=== PATIENT | female | born 1955 | race Caucasian/White ===

== ENCOUNTER 2022-08-24 10:32 | Emergency (ER) | payer OTHER ==
[2022-08-24 10:46] VITALS: BP 112/77; PULSE 86; RESP 16; TEMP 97.8; BMI 22.4
== END 2022-08-24 13:50 | disposition home or self-care (01) ==
LOC: FER 10:32
PROC: 2W3RX1Z Immobilization of Left Lower Leg using Splint (ICD-10-PCS; principal; 2022-08-24)
DX: S99.912A Unspecified injury of left ankle, initial encounter (principal); W01.0XXA Fall on same level from slipping, tripping and stumbling without subsequent striking against object, initial encounter
CPT/HCPCS: 29515; 73630-TC-RT-FY; 99283-25

== ENCOUNTER 2023-07-27 05:24 | Day surgery (SDC) | payer OTHER, MEDICARE ==
[2023-07-21 10:57] VITALS: BMI 22.8
[2023-07-27 08:41] VITALS: TEMP 98.4
[2023-07-27 09:26] VITALS: BP 111/61; PULSE 75; RESP 14
== END 2023-07-27 09:53 | disposition home or self-care (01) ==
LOC: JASU-ENDO 05:24
PROVIDERS: ATTEND Internal Medicine Gastroenterology
PROC: 0DBP8ZX Excision of Rectum, Via Natural or Artificial Opening Endoscopic, Diagnostic (ICD-10-PCS; 2023-07-27)
PROC: 0DBH8ZX Excision of Cecum, Via Natural or Artificial Opening Endoscopic, Diagnostic (ICD-10-PCS; principal; 2023-07-27 08:00)
DX: Z12.11 Encounter for screening for malignant neoplasm of colon (principal); K63.5 Polyp of colon; K63.89 Other specified diseases of intestine; K64.8 Other hemorrhoids; K57.30 Diverticulosis of large intestine without perforation or abscess without bleeding; Z86.010 Personal history of colon polyps; Z80.0 Family history of malignant neoplasm of digestive organs
CPT/HCPCS: 88305-TC